=== PATIENT | female | born 1950 | race American Indian/Alaskan Native ===

== ENCOUNTER 2016-10-06 20:57 | Observation (INO) | payer MEDICARE, OTHER ==
--- NOTE | 2016-10-06 21:31 | ED PDOC ---
Arrival/HPI - General Chief Complaint: Chest Pain Time Seen by Provider: 10/06/16 20:58 Historian: Patient - History of Present Illness Narrative History of Present Illness (Text): 10/06/16 21:20 Patrick Campbell is a 66 year old female, whose past medical history includes hyperlipidemia, presents to the Emergency department complaining of chest discomfort radiating to the neck and arm since yesterday. Patient states the discomfort has been intermittent, no shortness of breath.States she had stopped taking her Lipitor meds for the past month. Patient denies headache, fever, chills cough, nausea, vomiting, diarrhea, diaphoresis, jaw pain, back pain, lower extremity pain/swelling, recent travels, or other complaints. Time/Duration: 24 hours Symptom Onset: Sudden Symptom Course: Intermittent Modifying Factors (Text): None Associated Symptoms (Text): discomfort to arm and neck Past Medical History - Provider Review Nursing Documentation Reviewed: Yes - Psychiatric Hx Substance Use: No - Surgical History Other/Comment: uterine fibroids - Anesthesia Hx Anesthesia: Yes Hx Anesthesia Reactions: No Hx Malignant Hyperthermia: No Family/Social History - Physician Review Nursing Documentation Reviewed: Yes Family/Social History: CAD/HI Smoking Status: Never Smoked Hx Alcohol Use: No Hx Substance Use: No Allergies/Home Meds Allergies/Adverse Reactions: Allergies No Known Allergies Allergy (Verified 10/06/16 21:28) Home Medications: Home Meds Medication Instructions Recorded Confirmed Atorvastatin [Lipitor] 20 mg PO DAILY 10/06/16 10/06/16 Review of Systems - Physician Review All systems were reviewed & negative as marked: Yes - Review of Systems Constitutional: absent: Fevers Respiratory: SOB Cardiovascular: Chest Pain Gastrointestinal: absent: Abdominal Pain, Nausea, Vomiting Musculoskeletal: Neck Pain (neck discomfort), Other (arm discomfort ) Neurological: absent: Headache, Dizziness Physical Exam Vital Signs Temp Pulse Resp BP Pulse Ox 10/07/16 00:34 70 16 136/95 H 99 10/06/16 23:07 98.9 F 69 20 175/109 H 100 10/06/16 20:57 98.2 F 88 16 155/83 H 98 Temperature: Afebrile Blood Pressure: Hypertensive Pulse: Regular Respiratory Rate: Normal Appearance: Positive for: Well-Appearing, Non-Toxic, Comfortable Pain Distress: None Mental Status: Positive for: Alert and Oriented X 3 - Systems Exam Head: Present: Atraumatic, Normocephalic Pupils: Present: PERRL Extroacular Muscles: Present: EOMI Conjunctiva: Present: Normal Mouth: Present: Moist Mucous Membranes Neck: Present: Normal Range of Motion Respiratory/Chest: Present: Clear to Auscultation, Good Air Exchange. No: Respiratory Distress, Accessory Muscle Use Cardiovascular: Present: Regular Rate and Rhythm, Normal S1, S2. No: Murmurs Abdomen: Present: Normal Bowel Sounds. No: Tenderness, Distention, Peritoneal Signs Back: Present: Normal Inspection Upper Extremity: Present: Normal Inspection. No: Cyanosis, Edema Lower Extremity: Present: Normal Inspection. No: Edema Neurological: Present: GCS=15, CN II-XII Intact, Speech Normal Skin: Present: Warm, Dry, Normal Color. No: Rashes Psychiatric: Present: Alert, Oriented x 3, Normal Insight, Normal Concentration Medical Decision Making ED Course and Treatment: 10/06/16 21:20 Impression: 66 year old with chest discomfort radiating to the neck and arm. Plan: -- EKG -- Chest X-ray -- Labs -- Aspirin -- Reassess and disposition Progress Notes: EKG: Ordered, reviewed, and independently interpreted the EKG. Rate : 74 BPM Rhythm : NSR Interpretation : No ST-segment elevations or depressions, no T-wave inversions, normal intervals. No acute changes. 10/06/16 23:42 Chest X-ray: No Acute Process 10/07/16 00:17 Case was discussed with Dr. Reyez who accepts to her service and life underwriter consult was requested. - Lab Interpretations Lab Results: 10/06/16 21:35 10/06/16 21:35 Lab Results 10/06/16 21:35: WBC 3.9 L, RBC 4.43, Hgb 13.6, Hct 40.4, MCV 91.2, MCH 30.7, MCHC 33.7, RDW 12.8, Plt Count 203, MPV 10.8 10/06/16 21:35: Sodium 139, Potassium 5.1 H, Chloride 99, Carbon Dioxide 33, Anion Gap 12, BUN 16, Creatinine 0.8, Est GFR ( Amer) > 60, Est GFR (Non- Af Amer) > 60, Random Glucose 105, Calcium 9.3, Total Bilirubin 1.0, AST 32, ALT 22, Alkaline Phosphatase 127, Lactate Dehydrogenase 749 H, Total Creatine Kinase 77, Troponin I < 0.01, Total Protein 8.0, Albumin 4.4, Globulin 3.6, Albumin/Globulin Ratio 1.2 10/06/16 21:35: PT 10.7, INR 0.99, APTT 23.4 L I have reviewed the lab results: Yes - RAD Interpretation Radiology Orders: 10/06/16 21:24 CHEST PORTABLE [RAD] Stat Clinical Studies Specialist: ED Physician - EKG Interpretation Interpreted by ED Physician: Yes Type: 12 lead EKG - Medication Orders Current Medication Orders: Discontinued Medications Aspirin (Aspirin) 325 mg PO ONCE STA Stop: 10/06/16 21:31 Last Admin: 10/06/16 21:36 Dose: 325 mg Aspirin (Aspirin) Confirm Administered Dose 325 mg .ROUTE .STK-MED ONE Stop: 10/06/16 21:35 Last Admin: 10/06/16 21:51 Dose: - Scribe Statement The provider has reviewed the documentation as recorded by the Scribe 10/06/2016 Katina Mejíaibe Attestation: All medical record entries made by the Scribe were at my direction and personally dictated by me. I have reviewed the chart and agree that the record accurately reflects my personal performance of the history, physical exam, medical decision making, and the department course for this patient. I have also personally directed, reviewed, and agree with the discharge instructions and disposition. Disposition/Present on Arrival - Present on Arrival Any Indicators Present on Arrival: No History of DVT/PE: No History of Uncontrolled Diabetes: No Urinary Catheter: No History of Decub. Ulcer: No History Surgical Site Infection Following: None - Disposition Have Diagnosis and Disposition been Completed?: Yes Diagnosis: Chest pain Disposition: HOSPITALIZED Disposition Time: 00:09 Patient Plan: Observation Patient Problems: Current Active Problems Problem Status Onset Chest pain Acute Condition: STABLE
[2016-10-06 22:27] LABS: HEMOGLOBIN 13.6 g/dL (12.0-16.0); MEAN CELL VOLUME 91.2 fl (80.0-105.0); MEAN CORPUSCULAR HEMOGLOBIN 30.7 pg (25.0-35.0); MEAN CORPUSCULAR HGB CONC 33.7 g/dl (31.0-37.0); MEAN PLATELET VOLUME 10.8 fl (7.0-11.0); RBC 4.43 10^6/uL (3.5-6.1); RED CELL DISTRIBUTION WIDTH 12.8 % (11.5-14.5); WHITE BLOOD COUNT 3.9 10^3/ul (4.5-11.0)
[2016-10-06 22:35] LABS: ALB/GLOB RATIO 1.2 (1.1-1.8); ALBUMIN 4.4 g/dL (3.0-4.8); ALT/SGPT 22 U/L (7-56); AST/SGOT 32 U/L (15-39); BLOOD UREA NITROGEN 16 mg/dL (7-21); CALCIUM 9.3 mg/dL (8.4-10.5); GFR AFRICAN-AMERICAN > 60; GFR NON-AFRICAN AMERICAN > 60
[2016-10-06 22:39] LABS: INR 0.99 (0.93-1.08); PARTIAL THROMBOPLASTIN TIME 23.4 Seconds (23.7-30.8); PROTHROMBIN TIME 10.7 Seconds (9.9-11.8)
[2016-10-06 23:02] LABS: TROPONIN I < 0.01 ng/mL
--- NOTE | 2016-10-07 07:25 | RAD ---
HISTORY: pain COMPARISON: No prior. FINDINGS: LUNGS: No active pulmonary disease. PLEURA: No significant pleural effusion identified, no pneumothorax apparent. CARDIOVASCULAR: Normal. OSSEOUS STRUCTURES: No significant abnormalities. VISUALIZED UPPER ABDOMEN: Normal. OTHER FINDINGS: None. IMPRESSION: No active disease.
[2016-10-07 13:06] LABS: ALB/GLOB RATIO 1.3 (1.1-1.8); ALBUMIN 4.3 g/dL (3.0-4.8); ALT/SGPT 22 U/L (7-56); AST/SGOT 25 U/L (15-39); BLOOD UREA NITROGEN 10 mg/dL (7-21); CALCIUM 9.3 mg/dL (8.4-10.5); GFR AFRICAN-AMERICAN > 60; GFR NON-AFRICAN AMERICAN > 60; HDL CHOLESTEROL 80 mg/dL (29-60)
[2016-10-07 13:16] LABS: TROPONIN I < 0.01 ng/mL
[2016-10-07 13:17] LABS: LDL CHOLESTEROL 143 mg/dL (0-129)
--- NOTE | 2016-10-07 13:41 | CON ---
REASON FOR CONSULTATION: Chest pain, cardiac evaluation. BRIEF CLINICAL HISTORY: A 66-year-old female past history significant for hyperlipidemia, came in with complaint of left-sided chest pain, chest, back and upper arm and chest pain increases when twisting the body and chest pain increases on movement and also when taking a deep breath. Denies any chest pain, dizziness on exertion, or chest pain on exertion. PAST HISTORY: Significant for hyperlipidemia. SOCIAL HISTORY: Denies smoking, denies any history of alcohol abuse. PAST SURGICAL HISTORY: Significant for partial hysterectomy many years ago. FAMILY HISTORY: Significant for coronary artery disease. REVIEW OF SYSTEMS: As per HPI. PHYSICAL EXAMINATION VITAL SIGNS: Height of the patient is 5 feet 6 inches, weight of the patient 162 pounds, body mass index 26.1 kg/m2. EKG shows normal sinus, heart rate 74, no acute ST-T changes noted. LABORATORY DATA: Blood workup as follows: WBC 3.9, hemoglobin 13.6, hematocrit 40.4, platelet count 203. Chemistry shows sodium 139, potassium 5.1, chloride 99, carbon dioxide 33, anion gap of 12, BUN 16, creatinine 0.8, troponin 0.01. EKG shows normal sinus, heart rate 74. IMPRESSION: A 66-year-old female with past medical history of hyperlipidemia, admitted with atypical chest pain. Given the multiple risk factors of coronary artery disease, suggested to have cardiac stress test, lipid profile, TSH, hemoglobin A1c. Further recommendation upon hospital course. We will keep n.p.o. for stress test today. Discussed with the patient. We will follow with you. Thank you for providing me the opportunity in taking care of the patient. Petrona Marin MD
--- NOTE | 2016-10-07 16:29 | CARD ---
APPROVED REPORT Protocol: JAZ Test Type: Sestamibi Stress Test Attending Physician: Dr. Petrona Crowley Referring Physician: Dr. Pia Reyez Test Indications: Chest Pain Height:5 ft 6 in Weight:162lbs Medications: None Medical History: 66 y/o female with a history of hyperlipidemia and chest pain Target HR: 155 bpm Resting ECG: RSR Resting Heart Rate: 75 bpm Resting Blood Pressure: 122/80mmHg Submaximum (85%): 132 bpm POST EXERCISE Reason for Termination: Fatigue Target HR: Yes Max HR: 155 bpm 100% of Maximum Predicted HR: 155 bpm Exercise duration: 09:27 min:sec, 4 Stage Exercise capacity: 10.8METs Max Blood Pressure: 160/70mmHg Blood Pressure response to exercise: normal resting BP - appropriate response Heart Rate response to exercise: appropriate Chest Pain: No, none Angina index: 0 Arrhythmia: No, none ST Change: No, none Deviation: 0 mm INTERPRETATION Stress EKG Conclusion: MYOVIEW NUCLEAR STRESS TEST STOPPED AFTER 9 MINUTES 27 SECONDS OF JAZ PROTOCOL DUE TO FATIGUE. PATIENT [id number]% OF PREDICTED HEART RATE. NO CHEST PAIN. NO ST-T CHANGES. NUCLEAR SCAN REPORT PENDING. Signed by Petrona Crowley Electronically Approved: 10/07/2016 11:18:24 EXAM: Myocardial Perfusion REST/STRESS Stress Test Type: Exercise Treadmill Imaging Protocol Rest Spect myocardial perfusion imaging was performed in supine position 40 minutes following the injection of 10.1 mCi of Tc-99 Myoview. At peak stress, the patient was injected intravenously with 30.6mCi of Tc-99 tetrofosmin after an exercise time of 9 minutes and 27 seconds. Gated Stress Spect was performed 70 minutes after intravenous Tc-99 Myoview injection. The images were gated to evaluate regional wall motion and calculate ventricular ejection fraction.Images were reconstructed using backfilter projection method in short horizontal and verticle long axis. Spect slices were generated. LV Perfusion The quality of the study is good. The left ventricle is normal in size. The right ventricle is unremarkable. The lung uptake is within normal limits. The distribution of tracer reveals normal uptake pattern throughout the LV myocardium on the stress study. The rest myocardial perfusion study shows no significant change. Wall Motion Wall motion study shows good contractility of the left ventricle. LVEF = 66%. Conclusion 1. Normal SPECT myocardial perfusion study. 2. Normal gated wall motion of the left ventricle.
--- NOTE | 2016-10-07 18:18 | CARD ---
APPROVED REPORT EXAM: Two-dimensional and M-mode echocardiogram with Doppler and color Doppler. INDICATION Chest Pain 2D DIMENSIONS Left Atrium (2D)3.8 (1.6-4.0cm)IVSd0.8 (0.7-1.1cm) LVDd3.8 (3.9-5.9cm)PWd0.8 (0.7-1.1cm) LVDs2.5 (2.5-4.0cm)FS (%) 34.7 % LVEF (%)64.7 (>50%) M-Mode DIMENSIONS Aortic Root2.60 (2.2-3.7cm)Aortic Cusp Exc.1.50 (1.5-2.0cm) Aortic Valve AoV Peak Bzthtfig597.0cm/Jose M Peak GR.5mmHg Mitral Valve MV E Gdwgxtcz66.0cm/sMV A Hbbdnsqv99.9cm/sE/A ratio0.9 TDI Lateral E' Peak V11.00cm/sMedial E' Peak V8.58cm/sE/Lateral E'7.2 E/Medial E'9.2 Pulmonary Valve PV Peak Gouyipeb95.1cm/sPV Peak Grad.2mmHg Tricuspid Valve TR Peak Mgjnptbo042fv/sRAP [id number] Peak Gr.21mmHg [id number] LEFT VENTRICLE The left ventricle is normal size. There is normal left ventricular wall thickness. The left ventricular function is normal.EF-60-65% There is normal LV segmental wall motion. Transmitral Doppler flow pattern is Grade III-reversible restrictive diastolic dysfunction. No left ventricle thrombus noted on this study. There is no ventricular septal defect visualized. There is no left ventricular aneurysm. There is no mass noted in the left ventricle. RIGHT VENTRICLE The right ventricle is normal size. There is normal right ventricular wall thickness. The right ventricular systolic function is normal. ATRIA The left atrium size is normal. The right atrium size is normal. The interatrial septum is intact with no evidence for an atrial septal defect. AORTIC VALVE The aortic valve is normal in structure. No aortic regurgitation is present. There is no aortic valvular stenosis. There is no aortic valvular vegetation. MITRAL VALVE The mitral valve is thickened but opens well. Mitral regurgitation is trace. There is no mitral valve stenosis. There is no evidence of mitral valve prolapse. TRICUSPID VALVE The tricuspid valve leaflets are thickened , but open well. There is trace tricuspid regurgitation. There is no tricuspid valve stenosis. There is no tricuspid valve prolapse or vegetation. PULMONIC VALVE The pulmonary valve is normal in structure. There is no pulmonic valvular regurgitation. There is no pulmonic valvular stenosis. GREAT VESSELS The aortic root is normal in size. The ascending aorta is normal in size. The pulmonary artery is normal. The IVC is normal in size and collapses >50% with inspiration. PERICARDIAL EFFUSION There is no pleural effusion. There is no pericardial effusion. <Conclusion> Normal Chamber Size, EF-60-65%. Trace MR/TR. RVSP-31 mmof hg.
[2016-10-07 18:19] VITALS: BP 96/51; PULSE 65; RESP 28
[2016-10-07 18:21] VITALS: TEMP 98; O2SAT 97
--- NOTE | 2016-10-08 01:08 | CARD ---
APPROVED REPORT EKG Measurement Heart [id number] <Conclusion> Normal sinus rhythm Normal ECG
--- NOTE | 2016-10-08 11:57 | CP.PCM.HP ---
History of Present Illness - History of Present Illness History of Present Illness: 10/07/16 - History of Present Illness Patrick Campbell is a 66 year old female, whose past medical history includes hyperlipidemia, presents to the Emergency department complaining of chest discomfort radiating to the neck and arm since yesterday. Patient states the discomfort has been intermittent, no shortness of breath.States she had stopped taking her Lipitor meds for the past month. Patient denies headache, fever, chills cough, nausea, vomiting, diarrhea, diaphoresis, jaw pain, back pain, lower extremity pain/swelling, recent travels, or other comlaints Present on Admission - Present on Admission Any Indicators Present on Admission: No Review of Systems - Constitutional Constitutional: As Per HPI - EENT Eyes: As Per HPI Ears: As Per HPI Nose/Mouth/Throat: As Per HPI - Breasts Breasts: As Per HPI - Cardiovascular Cardiovascular: As Per HPI - Respiratory Respiratory: As Per HPI - Gastrointestinal Gastrointestinal: As Per HPI - Genitourinary Genitourinary: As Per HPI Past Patient History - Past Social History Smoking Status: Never Smoked - NEUROLOGICAL Hx Neurological Disorder: No - HEENT Hx HEENT Problems: No - RENAL Hx Chronic Kidney Disease: No - ENDOCRINE/METABOLIC Hx Endocrine Disorders: No - HEMATOLOGICAL/ONCOLOGICAL Hx Blood Disorders: No - MUSCULOSKELETAL/RHEUMATOLOGICAL Hx Musculoskeletal Disorders: No Hx Falls: Yes (2007) - GASTROINTESTINAL Hx Gastrointestinal Disorders: No - GENITOURINARY/GYNECOLOGICAL Hx Genitourinary Disorders: No - PSYCHIATRIC Hx Substance Use: No - SURGICAL HISTORY Other/Comment: uterine fibroids - ANESTHESIA Hx Anesthesia: Yes Hx Anesthesia Reactions: No Hx Malignant Hyperthermia: No Meds Allergies/Adverse Reactions: Allergies Allergy/AdvReac Type Severity Reaction Status Date / Time No Known Allergies Allergy Verified 10/06/16 21:28 Physical Exam - Constitutional Appears: Well - Head Exam Head Exam: ATRAUMATIC, NORMAL INSPECTION, NORMOCEPHALIC - Eye Exam Eye Exam: EOMI, Normal appearance, PERRL Pupil Exam: NORMAL ACCOMODATION, PERRL - ENT Exam ENT Exam: Mucous Membranes Moist, Normal Exam - Neck Exam Neck exam: Positive for: Normal Inspection - Respiratory Exam Respiratory Exam: Clear to Auscultation Bilateral, NORMAL BREATHING PATTERN - Cardiovascular Exam Cardiovascular Exam: REGULAR RHYTHM - GI/Abdominal Exam GI & Abdominal Exam: Normal Bowel Sounds, Soft. absent: Tenderness - Rectal Exam Rectal Exam: NORMAL INSPECTION - Exam Exam: Circumcision, NORMAL INSPECTION External exam: NORMAL EXTERNAL EXAM Speculum exam: NORMAL SPECULUM EXAM Bimanual exam: NORMAL BIMANUAL EXAM - Extremities Exam Extremities exam: Positive for: normal inspection - Back Exam Back exam: NORMAL INSPECTION - Neurological Exam Neurological exam: Alert, CN II-XII Intact, Normal Gait, Oriented x3, Reflexes Normal - Psychiatric Exam Psychiatric exam: Normal Affect, Normal Mood - Skin Skin Exam: Dry, Intact, Normal Color, Warm Results - Vital Signs Recent Vital Signs: Last Vital Signs Temp 98 F 10/07/16 16:00 Pulse 65 10/07/16 16:17 Resp 28 H 10/07/16 16:17 BP 96/51 L 10/07/16 16:17 Pulse Ox 97 10/07/16 16:00 - Labs Result Diagrams: 10/06/16 21:35 10/07/16 13:00 Labs: Laboratory Results - last 24 hr 10/07/16 10/07/16 10/07/16 12:50 13:00 13:10 Sodium 139 Potassium 3.7 Chloride 100 Carbon Dioxide 30 Anion Gap 13 BUN 10 Creatinine 0.7 Est GFR ( Amer) > 60 Est GFR (Non-Af Amer) > 60 Random Glucose 111 H Hemoglobin A1c 5.9 Calcium 9.3 Magnesium 2.0 Total Bilirubin 1.4 H AST 25 ALT 22 Alkaline Phosphatase 101 Lactate Dehydrogenase 427 Total Creatine Kinase 68 Troponin I < 0.01 Total Protein 7.6 Albumin 4.3 Globulin 3.4 Albumin/Globulin Ratio 1.3 Triglycerides 78 Cholesterol 255 H LDL Cholesterol Direct 143 H HDL Cholesterol 80 H TSH 3rd Generation 1.18 Assessment & Plan (1) Hypercholesterolemia Status: Acute (2) Hyperglycemia Status: Acute (3) Leukopenia Status: Acute (4) Abnormal liver function test Status: Acute - Assessment and Plan (Free Text) Assessment: pt is admitted , cardio consult called , went for stress test , noted by me , pt cleared by cardio , dc home , urge to cont. cholestrol meds , f/u pcp and cardio
== END 2016-10-07 18:47 | disposition home or self-care (01) ==
LOC: ED 20:57 → ERH 10-07 00:06 → CCU 10-07 01:35
PROVIDERS: ADMIT Internal Medicine; ATTEND Internal Medicine
DX: R07.89 Other chest pain (principal); E78.5 Hyperlipidemia, unspecified; E78.00 Pure hypercholesterolemia, unspecified; R73.9 Hyperglycemia, unspecified; R79.89 Other specified abnormal findings of blood chemistry; D72.819 Decreased white blood cell count, unspecified
CPT/HCPCS: 71010; 78452; 80053; 80061; 82550; 83036; 83615; 83735; 84443; 84484; 85027; 85610; 85730; 87081; 93005; 93017; 93306; 99285; A9502; G0378